=== PATIENT | male | born 2000 | race Caucasian/White ===

== ENCOUNTER → 2019-08-05 09:53 | Outpatient (CLI) | payer OTHER, SELFPAY ==
[2019-08-05 10:41] LABS: Influenza A - CEPHEID Flu A NEGATIVE (NEGATIVE); Influenza B - CEPHEID Flu B NEGATIVE (NEGATIVE)
== END ==
PROVIDERS: Visit Provider Nurse Practitioner
DX: R05 Cough (principal)
CPT/HCPCS: 87502

== ENCOUNTER → 2019-08-05 10:19 | Outpatient (CLI) | payer OTHER, SELFPAY ==
--- NOTE | 2019-08-05 10:21 | DI.RAD.S_ITS ---
PROCEDURE: XR CHEST 2V INDICATIONS: Vapes, cough, r/o infection TECHNIQUE: 2 views of the chest were acquired. COMPARISON: None. FINDINGS: Surgical changes and devices: None. Lungs and pleura: Developing consolidation within the right infrahilar region appears to be present. There is no effusion or pneumothorax. Mediastinum: Mediastinal contours are normal. Heart size is normal. Bones and chest wall: No suspicious bony abnormalities. Soft tissues appear unremarkable. IMPRESSION: Right infrahilar pneumonia. Dictated by: Keith Pacheco M.D. on 08/05/2019 at 10:07 Approved by: Keith Pacheco M.D. on 08/05/2019 at 10:08
== END ==
PROVIDERS: Visit Provider Nurse Practitioner
DX: J18.9 Pneumonia, unspecified organism (principal); R05 Cough; Z72.0 Tobacco use
CPT/HCPCS: 71046; 87502